=== PATIENT | female | born 1980 | race Hispanic/Latino ===

== ENCOUNTER 2020-03-28 15:53 | Outpatient (CLI) | payer MEDICAID ==
--- NOTE | 2020-03-28 17:35 | XRay Report ---
RIGHT KNEE 3 VIEW(S) INDICATION / CLINICAL INFORMATION: RIGHT KNEE PAIN COMPARISON: None available. FINDINGS: BONES / JOINT(S): No acute fracture or subluxation. No significant arthritis. SOFT TISSUES: No significant abnormality. ADDITIONAL FINDINGS: None. Signer Name: Timur Arteaga MD Signed: 03/28/2020 5:34 PM Workstation Name: [id number]
== END 2020-03-28 15:54 | disposition home or self-care (01) ==
LOC: SPVIMAG 15:53
DX: M25.561 Pain in right knee (principal)

== ENCOUNTER 2020-05-19 11:16 | Outpatient (CLI) | payer MEDICAID ==
--- NOTE | 2020-05-19 12:09 | Mammography Report ---
DIGITAL SCREENING MAMMOGRAM WITH CAD, 05/19/2020 CLINICAL INFORMATION / INDICATION: Routine screening mammography. TECHNIQUE: Digital bilateral 2D mammography was obtained in the craniocaudal and mediolateral obliqu e projections. This examination was interpreted with the benefit of Computer-Aided Detection analysis . COMPARISON: This is the patient's first mammogram. FINDINGS: Breast Density: There are scattered areas of fibroglandular density. No dominant mass, suspicious calcifications, or architectural distortion in either breast. IMPRESSION: No mammographic evidence of malignancy. Follow up recommendation: Routine yearly BI-RADS Category 1: Negative. A "normal" or negative report should not discourage follow up or biopsy of a clinically significant f inding. A written summary of these findings will be mailed to the patient. The patient will be entered into a mammography reporting system which will generate a reminder letter for the patient's next appointmen t at the appropriate interval. The [employer] recommends yearly mammograms starting at age 40 and continuing as l magalie as a woman is in good health. Breast MRI is recommended for women with an approximate 20-25% or greater lifetime risk of breast cancer, including women with a strong family history of breast or ova rudolph cancer or who have been treated for Hodgkin's disease. Signer Name: Antonia Gomes MD Signed: 05/19/2020 12:05 PM Workstation Name: [id number]
== END 2020-05-19 11:17 | disposition home or self-care (01) ==
LOC: SPVWC 11:16
DX: Z12.31 Encounter for screening mammogram for malignant neoplasm of breast (principal)
CPT/HCPCS: 77067